=== PATIENT | male | born 1980 | race Caucasian/White ===

== ENCOUNTER → 2018-08-24 | Outpatient (CLI) | payer OTHER | LOC: M OUTALCOH 09:15 | PROVIDERS: ATTEND Psychiatry & Neurology Psychiatry | DX: Z13.9 Encounter for screening, unspecified (principal); F10.20 Alcohol dependence, uncomplicated ==

== ENCOUNTER 2018-10-07 16:00 | Outpatient (RCR) | payer OTHER | END 2018-10-09 | LOC: M OUTALCOH 16:00 | PROVIDERS: ATTEND Psychiatry & Neurology Psychiatry | DX: F10.20 Alcohol dependence, uncomplicated (principal) ==

== ENCOUNTER 2018-11-01 07:51 | Outpatient (RCR) | payer OTHER | END 2018-11-09 | LOC: M OUTALCOH 07:51 | PROVIDERS: ATTEND Psychiatry & Neurology Psychiatry | DX: F10.20 Alcohol dependence, uncomplicated (principal) ==

== ENCOUNTER 2018-12-05 09:15 | Outpatient (RCR) | payer OTHER | END 2018-12-10 | LOC: M OUTALCOH 09:15 | PROVIDERS: ATTEND Psychiatry & Neurology Psychiatry | DX: F10.20 Alcohol dependence, uncomplicated (principal) ==

== ENCOUNTER → 2019-01-09 | Outpatient (RCR) | payer OTHER | LOC: M OUTALCOH 12-19 12:58 | PROVIDERS: ATTEND Psychiatry & Neurology Psychiatry | DX: F10.20 Alcohol dependence, uncomplicated (principal) ==

== ENCOUNTER 2019-02-08 15:00 | Outpatient (RCR) | payer OTHER | END 2019-02-09 | LOC: M OUTALCOH 15:00 | PROVIDERS: ATTEND Psychiatry & Neurology Psychiatry | DX: F10.20 Alcohol dependence, uncomplicated (principal) ==

== ENCOUNTER 2019-03-08 13:58 | Outpatient (RCR) | payer OTHER | END 2019-03-11 | LOC: M OUTALCOH 13:58 | PROVIDERS: ATTEND Psychiatry & Neurology Psychiatry | DX: F10.20 Alcohol dependence, uncomplicated (principal) ==

== ENCOUNTER → 2019-04-11 | Outpatient (RCR) | payer OTHER | LOC: M OUTALCOH 03-15 15:00 | PROVIDERS: ATTEND Psychiatry & Neurology Psychiatry | DX: F10.20 Alcohol dependence, uncomplicated (principal) ==

== ENCOUNTER 2019-05-11 08:40 | Outpatient (RCR) | payer OTHER | END 2019-05-12 | LOC: M OUTALCOH 08:40 | PROVIDERS: ATTEND Psychiatry & Neurology Psychiatry | DX: F10.20 Alcohol dependence, uncomplicated (principal) ==

== ENCOUNTER 2019-05-26 12:42 | Outpatient (RCR) | payer OTHER | END 2019-06-10 | LOC: M OUTALCOH 12:42 | PROVIDERS: ATTEND Psychiatry & Neurology Addiction Medicine | DX: F10.20 Alcohol dependence, uncomplicated (principal) ==

== ENCOUNTER 2019-06-13 14:36 | Outpatient (RCR) | payer OTHER | END 2019-07-11 | LOC: M OUTALCOH 14:36 | PROVIDERS: ATTEND Psychiatry & Neurology Addiction Medicine | DX: F10.20 Alcohol dependence, uncomplicated (principal) ==

== ENCOUNTER 2019-07-18 10:06 | Outpatient (RCR) | payer OTHER | END 2019-08-10 | LOC: M OUTALCOH 10:06 | PROVIDERS: ATTEND Psychiatry & Neurology Addiction Medicine | DX: F10.20 Alcohol dependence, uncomplicated (principal) ==

== ENCOUNTER 2019-08-22 09:59 | Outpatient (RCR) | payer OTHER | END 2019-09-10 | LOC: M OUTALCOH 09:59 | PROVIDERS: ATTEND Psychiatry & Neurology Addiction Medicine | DX: F10.20 Alcohol dependence, uncomplicated (principal) ==

== ENCOUNTER 2019-09-26 12:55 | Outpatient (RCR) | payer OTHER | END 2019-10-10 | LOC: M OUTALCOH 12:55 | PROVIDERS: ATTEND Psychiatry & Neurology Addiction Medicine | DX: F10.20 Alcohol dependence, uncomplicated (principal) ==

== ENCOUNTER 2019-11-07 13:00 | Outpatient (RCR) | payer OTHER | END 2019-11-10 | LOC: M OUTALCOH 13:00 | PROVIDERS: ATTEND Psychiatry & Neurology Addiction Medicine | DX: F10.20 Alcohol dependence, uncomplicated (principal) ==

== ENCOUNTER 2019-12-19 15:22 | Outpatient (RCR) | payer OTHER | END 2020-01-10 | LOC: M OUTALCOH 15:22 | PROVIDERS: ATTEND Psychiatry & Neurology Addiction Medicine | DX: F10.20 Alcohol dependence, uncomplicated (principal) ==

== ENCOUNTER 2020-01-23 12:58 | Outpatient (RCR) | payer OTHER | END 2020-02-10 | LOC: M OUTALCOH 12:58 | PROVIDERS: ATTEND Psychiatry & Neurology Addiction Medicine | DX: F10.20 Alcohol dependence, uncomplicated (principal) ==

== ENCOUNTER 2020-03-04 14:39 | Outpatient (RCR) | payer OTHER | END 2020-03-11 | LOC: M OUTALCOH 14:39 | PROVIDERS: ATTEND Psychiatry & Neurology Addiction Medicine | DX: F10.20 Alcohol dependence, uncomplicated (principal) ==

== ENCOUNTER → 2020-12-10 | Outpatient (CLI) | payer OTHER ==
--- NOTE | 2020-12-10 10:10 | REP ---
INDICATION: GB POLYPS COMPARISON: None. TECHNIQUE: Real time love scale ultrasound examination using curved array transducer. FINDINGS: Liver and pancreas are normal in contour, size, and echogenicity without focal hepatic or pancreatic lesions identified. The gallbladder is normal and without gallstones, wall thickening, or pericholecystic fluid. A 5 mm echogenic focus without shadowing is noted along the posterior wall and consistent with small benign appearing polyps. No biliary ductal dilatation is appreciated and the common bile duct measures 3.6 mm diameter. Right kidney is normal in reniform shape without hydronephrosis and measures 11.2 x 4.8 x 5.0 cm. No ascites in the visualized right upper quadrant. IMPRESSION: Essentially normal limited right upper quadrant ultrasound Single 5 mm benign appearing gallbladder polyp identified. <Electronically signed by Jere Sharpe > 12/10/20 1007
== END ==
LOC: M RAD 09:09
PROVIDERS: ATTEND Nurse Practitioner Family
DX: K82.4 Cholesterolosis of gallbladder (principal)

== ENCOUNTER → 2022-03-20 | Outpatient (CLI) | payer OTHER | LOC: M OUTALCOH 07:51 | PROVIDERS: ATTEND Psychiatry & Neurology Psychiatry | DX: Z13.39 Encounter for screening examination for other mental health and behavioral disorders (principal) ==

== ENCOUNTER 2022-03-25 14:39 | Outpatient (RCR) | payer OTHER | END 2022-04-11 | LOC: M OUTALCOH 14:39 | PROVIDERS: ATTEND Psychiatry & Neurology Psychiatry | DX: Z03.89 Encounter for observation for other suspected diseases and conditions ruled out (principal) ==

== ENCOUNTER 2022-07-30 08:36 | Emergency (ER) | payer OTHER ==
[2022-07-30 10:30] VITALS: BP 122/70
[2022-07-30] MEDS ORDERED: CETI-24 PO (11:09)
[2022-07-30] MEDS ORDERED: AZEL1SPR3 NARES (11:09)
== END 2022-07-30 11:23 | disposition home or self-care (01) ==
LOC: EDBD 08:36 → M ED 08:36
DX: J01.90 Acute sinusitis, unspecified (principal); R04.0 Epistaxis; F17.200 Nicotine dependence, unspecified, uncomplicated; Z79.899 Other long term (current) drug therapy; Z79.52 Long term (current) use of systemic steroids